=== PATIENT | female | born 1930 | race Caucasian/White ===

== ENCOUNTER 2020-04-21 14:48 | Inpatient (IN) ==
[2020-04-21] MEDS ORDERED: DIPHTH,PERTUSS(ACELL),TET VAC 0.5 ML VIAL IM ONE (15:11)
[2020-04-21] MEDS ORDERED: NORMAL SALINE 1,000 ML IV ONE (16:23)
[2020-04-21 16:29] LABS: Urine Bilirubin Negative (NEGATIVE); Urine Blood Negative /ul (NEGATIVE); Urine Ketone Negative (NEGATIVE); Urine Nitrite Negative (NEGATIVE); Urine Protein Negative (NEGATIVE); Urine Specific Gravity <=1.005 SP.GR. (1.005-1.010); Urine Urobilinogen Normal (NORMAL); Urine pH 5.5 pH (5.0-7.0)
--- NOTE | 2020-04-21 16:40 | ERNOTE ---
Lower Extremity HPI - Narrative Date of Service: 04/21/20 - General Lower Extremities Pain: hip: right Time Seen by Provider: 04/21/20 14:56 Source: patient Exam Limitations: no limitations - Immun/Allergies/Home Medications Immunizations: IMMUNIZATION HX Immunizations Up to Date Yes History of Influenza Vaccine No Allergies/Adverse Reactions: Allergies Allergy/AdvReac Type Severity Reaction Status Date / Time Influenza Virus Vaccines Allergy Verified 04/21/20 14:59 nitrofurantoin Allergy Verified 04/21/20 14:59 [From Macrobid] Penicillins Allergy Verified 04/21/20 14:59 Sulfa (Sulfonamide Allergy Verified 04/21/20 14:59 Antibiotics) Home Medications: HOME MEDICATIONS Balsalazide Disodium [Colazal] 1,500 mg PO BID 04/21/20 [Last Taken Unknown] Meclizine HCl [Travel Sickness] 25 mg PO DAILY PRN 04/21/20 [Last Taken Unknown] glipiZIDE [Glipizide] 5 mg PO BIDAC 04/21/20 [Last Taken Unknown] metFORMIN HCL [Metformin HCl ER] 500 mg PO BID 04/21/20 [Last Taken Unknown] - History of Present Illness Narrative: Patient presents to the ED in transfer from outside facility for right hip fracute. [place] [facility] had contacted Ortho here and patient was accepted in transfer. She states her pain is much improved after Morphine. Right hip. I have reviewed the labs and CT and x-ray from outside ED. She states her right knee hurts a little and she has abrasion there. dT updated. No CP or SOB. No abdominal pain. Occurred: this afternoon Location of Incident: home Method of Injury: Reports: fell Modifying Factors - (Improves): Reports: rest Modifying Factors - (Worsens): Reports: movement Associated Symptoms: Reports: unable to bear weight Subsequent Symptoms: Denies: motor loss Prior Treament: Reports: recently seen Review of Systems - Review of Systems Constitutional: Absent: fever Respiratory: Absent: shortness of breath Cardiology: Absent: chest pain Gastrointestinal/Abdominal: Absent: abdominal pain Genitourinary: Absent: dysuria Musculoskeletal: Present: See HPI Skin: Present: See HPI Neurological: Absent: weakness All Other Systems: All systems neg except as marked Medical History (Last Reviewed 04/21/20 @ 16:36 by James Singleton MD) History of anxiety Hx of Crohn's disease Hx of diabetes mellitus Hx of hyperlipidemia Surgical History: Surgical History (Last Reviewed 04/21/20 @ 16:36 by James Singleton MD) Hx of appendectomy Hx of cholecystectomy Hx of colonoscopy Hx of hysterectomy Family History: Family History (Last Reviewed 04/21/20 @ 16:36 by James Singleton MD) Other No pertinent family history Social History: (Last Reviewed 04/21/20 @ 16:36 by James Singleton MD) Tobacco: Smoking Status: Never smoker Alcohol: alcohol intake: never Substance Use: substance use type: does not use Personal Safety: do you feel safe at home: Yes victim of physical abuse: No victim of emotional abuse: No victim of sexual abuse: No would you like helpful sources: No Physical Exam - Physical Exam General Appearance: Present: alert, no apparent distress Head Exam: Present: normal inspection Eye Exam: Normal inspection: bilateral, PERRL: bilateral Ears, Nose, Throat: Present: normal ENT inspection Neck: Present: normal inspection, other - right paraspinal muscular tenderness. No midline tenderness. Respiratory: Present: no respiratory distress, normal breath sounds Cardiovascular/Chest: Present: regular rate, rhythm, normal peripheral pulses Gastrointestinal/Abdominal: Present: normal bowel sounds, nontender, soft Back Exam: Present: no vertebral tenderness Extremity Exam: Present: other - clinical right hip fracture Neurological Exam: Present: other - pain limits exam, no acute unuilateral motor deficits Skin Exam: Present: normal color, warm/dry, other - abrasion right knee Progress - Results and Orders Patient's Lab Results:: I have reviewed the patient's lab results. Results and Orders: UA pending. I reviewed labs from [facility]. COVID here. - Vital Signs Patient's Vital Signs:: I have reviewed the patient's vital signs. Vital Signs: Vital Signs 04/21/20 14:56 04/21/20 15:17 04/21/20 15:38 Temperature 37.2 C Pulse Rate 72 72 Respiratory Rate 14 14 Blood Pressure 138/65 139/66 O2 Sat by Pulse Oximetry 98 97 04/21/20 15:57 Temperature 36.8 C Pulse Rate 68 Respiratory Rate 16 Blood Pressure 122/68 O2 Sat by Pulse Oximetry 96 - EKG EKG #1 EKG: NSR EKG read: Interp. by me EKG Comments: NSR rate 65. Non-specific no STEMI - Progress/Reassessment Chief Complaint: Hip Pain/Injury Progress Note-Subjective: 04/21/20 16:39 IV fluids given., I spoke with Dr Schofield who will admit. Departure Clinical Impression: Hip fracture - Departure Disposition: Still a patient Condition: Fair
[2020-04-21 16:45] LABS: Urine Appearance Clear (CLEAR); Urine Bacteria None Seen; Urine Color Pale Yellow; Urine RBC None Seen /hpf (0-5); Urine WBC None Seen /hpf (0-5)
[2020-04-21 16:46] LABS: Urine Yeast TRACE
[2020-04-21] MEDS ORDERED: MORPHINE SULFATE 2 MG/ML DISP.SYRIN IV PRN (18:27)
[2020-04-21] MEDS: MORPHINE SULFATE 4 MG/ML SYRG IV PRN (18:42)
[2020-04-21] MEDS: INSULIN LISPRO 100 UNITS/ML VIAL SC SCH (21:50)
[2020-04-21] MEDS: BALSALAZIDE DISODIUM 1500 MG PO SCH (21:51)
[2020-04-21] MEDS ORDERED: hydrALAZINE HCL 20 MG/ML VIAL IV PRN (22:23)
--- NOTE | 2020-04-21 22:31 | HP ---
Chief Complaint - Chief Complaint Date of Service: 04/21/20 Time of Service: 22:20 Chief Complaint: right hip pain History of Present Illness: 89-year-old female transferred here from [place] after she was diagnosed with a right femoral neck fracture with mild impaction. Dr. Novoa was consulted and accepted the case. Plan is to take her back tomorrow morning for surgical repair. Patient currently resting comfortable in bed, no concerns at this time. Vital signs and lab work are stable. She has a history of [id number] diabetes and hypertension. She endorses right hip pain with movement but is comfortable at rest. Lab work reviewed from outside facility which is stable, hemoglobin 13.5. Kidney functions appropriate. Medical History (Last Reviewed 04/21/20 @ 16:36 by James Singleton MD) History of anxiety Hx of Crohn's disease Hx of diabetes mellitus Hx of hyperlipidemia Surgical History: Surgical History (Last Reviewed 04/21/20 @ 16:36 by James Singleton MD) Hx of appendectomy Hx of cholecystectomy Hx of colonoscopy Hx of hysterectomy Family History: Family History (Last Reviewed 04/21/20 @ 16:36 by James Singleton MD) Other No pertinent family history Social History: (Last Reviewed 04/21/20 @ 16:36 by James Singleton MD) Tobacco: Smoking Status: Never smoker Alcohol: alcohol intake: never Substance Use: substance use type: does not use Personal Safety: do you feel safe at home: Yes victim of physical abuse: No victim of emotional abuse: No victim of sexual abuse: No would you like helpful sources: No Review Of Systems (GEN) - Review of Systems Generalized/Overall Review: Absent: Weakness, Chills, Fever EENTM: Present: No Symptoms Reported Respiratory: Present: No Symptoms Reported Cardiac: Present: No Symptoms Reported Abdominal: Present: No Symptoms Reported Genitourinary: Present: No Symptoms Reported Musculoskeletal: Present: Joint Pain - right hip Neurological: Present: No Symptoms Reported Skin: Present: No Symptoms Reported Immunizations: IMMUNIZATION HX Immunizations Up to Date Yes History of Influenza Vaccine No Allergies/Adverse Reactions: Allergies Allergy/AdvReac Type Severity Reaction Status Date / Time Influenza Virus Vaccines Allergy Verified 04/21/20 14:59 nitrofurantoin Allergy Verified 04/21/20 14:59 [From Macrobid] Penicillins Allergy Verified 04/21/20 14:59 Sulfa (Sulfonamide Allergy Verified 04/21/20 14:59 Antibiotics) Home Medications: HOME MEDICATIONS Balsalazide Disodium [Colazal] 1,500 mg PO BID 04/21/20 [Last Taken Unknown] Meclizine HCl [Travel Sickness] 25 mg PO DAILY PRN 04/21/20 [Last Taken Unknown] glipiZIDE [Glipizide] 5 mg PO BIDAC 04/21/20 [Last Taken Unknown] metFORMIN HCL [Metformin HCl ER] 500 mg PO BID 04/21/20 [Last Taken Unknown] Exam - Exam Vital Signs: Vital Signs - Last Taken Temp 37.2 C 04/21/20 19:05 Pulse 71 04/21/20 19:05 Resp 18 04/21/20 19:05 BP 163/77 H 04/21/20 19:05 Pulse Ox 97 04/21/20 19:05 Constitutional: Present: Alert, Oriented x3, Cooperative, Elderly ENT Exam: Present: hard of hearing Eye Exam: bilateral eye: normal inspection, EOMI Neck: Present: tender midline - mildy tender (CT neg) Respiratory: Present: lungs clear, normal breath sounds Cardiovascular/Chest: Present: regular rate, rhythm, no murmur Peripheral Pulses: dorsalis-pedis (R): 2+, dorsalis-pedis (L): 2+ Abdomen: Present: soft, nontender, nondistended Extremity: Present: normal capillary refill. Absent: normal range of motion - Motion limited due to pain, right foot internally rotated, non-tender - Right hip tenderness with active and passive range of motion Skin Exam: Present: normal color, warm/dry Eye contact: Present: cooperative, good eye contact Diagnostic Studies: Laboratory Results Urine Color Pale yellow 04/21/20 16:15 Urine Appearance Clear (CLEAR) 04/21/20 16:15 Urine pH 5.5 pH (5.0-7.0) 04/21/20 16:15 Ur Specific [place] <=1.005 SP.GR. (1.005-1.010) 04/21/20 16:15 Urine Protein Negative mg/dL (NEGATIVE) 04/21/20 16:15 Urine Glucose (UA) Negative mg/dL (NEGATIVE) 04/21/20 16:15 Urine Ketones Negative mg/dL (NEGATIVE) 04/21/20 16:15 Urine Blood Negative /ul (NEGATIVE) 04/21/20 16:15 Urine Nitrate Negative (NEGATIVE) 04/21/20 16:15 Urine Bilirubin Negative mg/dl (NEGATIVE) 04/21/20 16:15 Urine Urobilinogen Normal EU/dl (NORMAL) 04/21/20 16:15 Ur Leukocyte Esterase Negative /ul (NEGATIVE) 04/21/20 16:15 Urine RBC None seen /hpf (0-5) 04/21/20 16:15 Urine WBC None seen /hpf (0-5) 04/21/20 16:15 Ur Epithelial Cells None seen /hpf (0-5) 04/21/20 16:15 Urine Bacteria None seen (NONE) 04/21/20 16:15 Urine Yeast Trace (NONE) 04/21/20 16:15 Urine Culture Comments Culture to follow 04/21/20 16:15 SARS-CoV-2 (PCR) Not detected (NotDetected) 04/21/20 15:05 Assessment/Plan - Narrative Narrative: Patient admitted under inpatient [facility] floor with plan to have hip repair tomorrow with Dr. Novoa. Pain well controlled with morphine as needed, no DVT prophylaxis at this time prior to surgery. Patient made n.p.o. at midnight. LR ordered to be started at that time. Hydralazine ordered for systolic pressures greater than 170. Blood sugars to be monitored before meals at bedtime. Moderate insulin sliding scale ordered. Patient cleared for surgery. Nurse to call questions with concerns. - Assessment/Plan (1) Diabetes Problem: Acute (2) Hypertension Problem: Acute (3) Hip fracture Problem: Acute
[2020-04-22] MEDS ORDERED: RINGER'S SOLUTION,LACTATED 1,000 ML IV ONE
[2020-04-22] MEDS: MORPHINE SULFATE 4 MG/ML SYRG IV PRN (01:53)
--- NOTE | 2020-04-22 07:57 | CONS ---
[facility] - General Date of Service: 04/22/20 Narrative: Normal reports a ground-level fall yesterday with severe right hip pain. She was unable to ambulate. She was brought into [facility] emergency department evaluated found to have a subcapital hip fracture minimally displaced. She was transferred to our hospital for care. She is admitted under Dr. Benson service. She reports mild discomfort in her right knee as well other than that she has no other complaints. Source: patient - History of Present Illness Timing/Duration: 24 hours Allergies/Adverse Reactions: Allergies Influenza Virus Vaccines Allergy (Verified 04/21/20 14:59) nitrofurantoin [From Macrobid] Allergy (Verified 04/21/20 14:59) Penicillins Allergy (Verified 04/21/20 14:59) Sulfa (Sulfonamide Antibiotics) Allergy (Verified 04/21/20 14:59) Home Medications: Home Medications Medication Instructions Recorded Last Taken Balsalazide Disodium [Colazal] 1,500 mg PO BID 04/21/20 Unknown Meclizine HCl [Travel Sickness] 25 mg PO DAILY PRN 04/21/20 Unknown glipiZIDE [Glipizide] 5 mg PO BIDAC 04/21/20 Unknown metFORMIN HCL [Metformin HCl ER] 500 mg PO BID 04/21/20 Unknown Medications - Medications Current Medications: Current Medications Lactated Ringer's (Lactated Ringers) 1,000 mls @ 125 mls/hr IV .Q8H ONE Stop: 04/22/20 07:59 Last Admin: 04/22/20 00:28 Dose: 125 mls/hr Documented by: Insulin Human Lispro (Humalog) [facility]; Protocol Stop: 05/21/20 21:01 Last Admin: 04/21/20 21:50 Dose: Not Given Documented by: Balsalazide Disodium (1,500 Mg) 1,500 mg PO BID [facility] Stop: 05/21/20 21:01 Last Admin: 04/21/20 21:51 Dose: Not Given Documented by: Physical Examination - Exam Vital Signs: Vital Signs - Last Taken Temp 36.5 C 04/22/20 06:43 Pulse 74 04/22/20 06:43 Resp 16 04/22/20 06:43 BP 149/62 04/22/20 06:43 Pulse Ox 91 L 11/10/20 06:43 O2 Oxygen Delivery Method Room Air - Results and Findings: Lab/Microbiology results last 24 hrs: Culture 04/21/20 16:15 Urine Culture - Preliminary Urine,Catheterized No Growth - Assessments/Findings (1) Hip fracture Diagnosis(s): O: Patient is resting comfortably in bed. She is alert and oriented. She responds to questions appropriately. She reports local discomfort in the right hip with palpation. [place] does produce right hip pain as well. She has an abrasion on her knee does report some discomfort with knee range of motion. She is able to plantarflex and dorsiflex right ankle. Sensation intact. Pulses intact. X-rays reviewed show mildly impacted and valgus alignment subcapital hip fracture. Labs and vitals reviewed. Assessment is right subcapital hip fracture Plan is closed reduction percutaneous fixation. Surgical risk discussed with patient. Consents will be obtained. She will of Ancef IV preop with test dose. Problem: Acute
[2020-04-22] MEDS ORDERED: ceFAZolin SODIUM 1 GM VIAL ONE (08:22)
--- NOTE | 2020-04-22 08:24 | ANES ---
Anesthesia Pre Procedure Eval Vitals/Labs: Last Vital Signs Temp 36.5 C 04/22/20 06:43 Pulse 74 04/22/20 06:43 Resp 16 04/22/20 06:43 BP 149/62 04/22/20 06:43 Pulse Ox 91 L 04/22/20 06:43 HOME MEDICATIONS Balsalazide Disodium [Colazal] 1,500 mg PO BID 04/21/20 [Last Taken Unknown] Meclizine HCl [Travel Sickness] 25 mg PO DAILY PRN 04/21/20 [Last Taken Unknown] glipiZIDE [Glipizide] 5 mg PO BIDAC 04/21/20 [Last Taken Unknown] metFORMIN HCL [Metformin HCl ER] 500 mg PO BID 04/21/20 [Last Taken Unknown] Allergies/Adverse Reactions: Allergies Allergy/AdvReac Type Severity Reaction Status Date / Time Influenza Virus Vaccines Allergy Verified 04/21/20 14:59 nitrofurantoin Allergy Verified 04/21/20 14:59 [From Macrobid] Penicillins Allergy Verified 04/21/20 14:59 Sulfa (Sulfonamide Allergy Verified 04/21/20 14:59 Antibiotics) - Planned Procedure Planned Procedure: hip fracture Medication List Reviewed:: Yes Allergies Verified: Yes Medical History (Last Reviewed 04/22/20 @ 08:11 by Jace Quinn CRNA) History of anxiety Hx of Crohn's disease Hx of diabetes mellitus Hx of hyperlipidemia Surgical History (Last Reviewed 04/22/20 @ 08:11 by Jace Quinn CRNA) Hx of appendectomy Hx of cholecystectomy Hx of colonoscopy Hx of hysterectomy Family History (Last Reviewed 04/22/20 @ 08:11 by Jace Quinn CRNA) Other No pertinent family history - Family Anesthesia History Family History:: no untoward family reactions to anesthesia, no familial bleeding tendencies, no family history of clotting disorders, no family history of premature - Airway/Neck/Teeth Teeth Condition: none Denture Type: Full upper, Full lower Neck Exam: full range of motion Mallampatti Score: 2 Thyromental (T-M) distance: > 6 cm Mandibulo Hyoid distance: > 3 cm - Respiratory Respiratory Physical: lungs clear Smoking Status: Never smoker Sleep Apnea currently treated: No Sleep Apnea by current assessment: No - Cardiovascular Cardiac History: hypertension - borderline Tolerate Activity: Poor Heart Sounds: S1 & S2, Regular - Gastrointestinal NPO since: 2399 - Anesthesia Assessment and Plan ASA Class: PS, III Anesthesia Type Plan: Spinal
[2020-04-22] MEDS ORDERED: MIDAZOLAM HCL/PF 5 MG/ML VIAL ONE (08:26)
[2020-04-22] MEDS ORDERED: BUPIVACAINE HCL/PF 10 ML VIAL ONE (08:26)
[2020-04-22] MEDS ORDERED: PROPOFOL VIAL IV ONE (08:27)
[2020-04-22] MEDS: RINGER'S SOLUTION,LACTATED 1,000 ML IV PRN ×4 (08:31→22:03)
[2020-04-22] MEDS: INSULIN LISPRO 100 UNITS/ML VIAL SC SCH ×4 (08:46→21:06)
[2020-04-22] MEDS ORDERED: ONDANSETRON HCL/PF 2 MG/ML VIAL IV PRN (10:02)
[2020-04-22] MEDS ORDERED: MAG HYDROX/ALUMINUM HYD/SIMETH 30 ML UDC PO PRN (10:02)
[2020-04-22] MEDS ORDERED: ACETAMINOPHEN 500 MG TABLET PO PRN (10:02)
[2020-04-22] MEDS ORDERED: MAGNESIUM HYDROXIDE 30 ML UDC PO PRN (10:02)
--- NOTE | 2020-04-22 10:02 | OR ---
Operative Report - Dictated Report Narrative: Date: 04/22/2020 Surgeon: Sam Novoa M.D. Cell Biology Scientist: None Preoperative diagnosis: Closed right nondisplaced femoral neck fracture Postoperative diagnosis:Closed right nondisplaced femoral neck fracture Operations and procedures: 1. Percutaneous fixation right nondisplaced femoral neck fracture 2. Intraoperative interpretation of radiographs Anesthesia: Spinal Specimens: None Estimated blood loss: Minimal Retained implants: [employer] 7.3 millimeter 16 millimeter threads cannulated screws 80, 85, 85 millimeter lengths with 2 washers Complications: None Indications for procedure: Mrs. Esparza is an 89-year-old female who injured the right hip after ground-level fall at home. She was admitted to the hospital after being evaluated in the emergency department. Once the medical provider felt that they were stable for surgical treatment, the risks and benefits alternatives were discussed. The risks of , blood clots, bleeding, infection, nerve/tendon/blood vessel injury, malunion, nonunion, failure of implants, painful implants, arthrosis, and need for additional procedures were discussed. The extremity was marked and consent was obtained on the floor. Procedure: After marking the operative extremity on the floor, the patient was taken to the operating room. A timeout was performed. IV antibiotics consisting of Ancef were administered. A spinal anesthetic was induced by anesthesia, and the patient was then placed onto a fracture table with a well-padded perineal post. The nonoperative leg was placed in a well-padded traction boot in slight extension without any traction with an SCD on the leg. The operative leg was pl aced in a well-padded traction boot. No traction or manipulation was performed. Preliminary images were attained utilizing C-arm in both the AP and lateral views. This confirmed that we had obtained adequate visualization of the fracture as well as reduction. Next the hip was then prepped and draped in a standard sterile fashion. Next three guidewires were placed percutaneously in an inverted triangle fashion. The inferior screws placed centered on the lateral view and along the inferior neck cortex on the AP view. The 2 superior screws were placed along the anterior and posterior cortex on the lateral view and along the inferior portion of the superior cortex on the AP in order to obtain as long of screws as possible. This was done with a starting point above the level of the lesser trochanter. C-arm was utilized in order to confirm the placement and to ensure that the tips of the guidewires were not penetrating the joint. The screws were then measured, the outer cortex was drilled, and the 3 screws were placed securing them to the bone on the lateral aspect providing fixation across the fracture. C-arm was again utilized to ensure that the screws were not into the joint and that they stabilized the fracture. The wounds were then thoroughly irrigated. Final images were obtained. The hip was placed through range of motion and showed no crepitance. The subcutaneous tissue was closed with 3-0 Vicryl, and the skin was closed with ama. Sterile dressings of Xeroform, 4 x 4, and Tegaderm were applied. All sponge, sharp, and instrument counts were correct prior to closing the wounds. The patient was then awoken and transferred to the postanesthesia care unit in stable condition.
--- NOTE | 2020-04-22 10:18 | ANES ---
Post Anesthesia Discharge - Transfer of Care Transfer of Care handoff given to nurse: Yes - Discharge from PACU Discharge from PACU when meets criteria: Yes - Awake and comfortable.
[2020-04-22] MEDS: BALSALAZIDE DISODIUM 1500 MG PO SCH ×2 (10:23→21:05)
--- NOTE | 2020-04-22 10:41 | ANES ---
Post Anesthesia Assessment - Vital Signs Vitals: Last Vital Signs Temp 35.9 C L 04/22/20 10:37 Pulse 73 04/22/20 10:37 Resp 16 04/22/20 10:37 BP 137/66 04/22/20 10:37 Pulse Ox 96 04/22/20 10:37 Airway Patency: Normal - Mental Status Level Of Consciousness: Alert, Appropriate - Pain Level Pain Score: 0 - N/V Assessment Nausea/Vomiting Presence: None Dehydration:: No
[2020-04-22] MEDS: ceFAZolin SODIUM 1 GM in DEXTROSE 5 % IN WATER 100 ML IV SCH ×4 (12:07→17:22)
--- NOTE | 2020-04-22 13:41 | PN ---
Subjective - Date and Time Seen Date: 04/22/20 Time: 09:00 Subjective Narrative: Patient resting comfortably in her bed, denies any pain at this time. Vital signs been stable and she been afebrile. No acute events overnight. Patient's only issue at this time is that she is cold currently has bear huggers on, is starting to feel better. Objective - Review of Systems Generalized/Overall Review: Reports: Chills. Denies: Weakness, Fever EENTM: Reports: No Symptoms Reported Cardiac: Reports: No Symptoms Reported Abdominal: Reports: No Symptoms Reported Genitourinary Symptoms: Reports: No Symptoms Reported Musculoskeletal Complaints: Denies: Joint Pain - Comfortable while resting Neurological: Reports: No Symptoms Reported Skin: Reports: No Symptoms Reported Endocrine: Reports: No Symptoms Reported - Vitals Vitals: Last Vital Signs Temp 35.9 C L 04/22/20 10:37 Pulse 73 04/22/20 12:22 Resp 16 04/22/20 12:22 BP 141/69 04/22/20 12:22 Pulse Ox 93 04/22/20 12:22 - Exam Constitutional: Present: Alert, Oriented x3, Cooperative, Elderly ENT Exam: Present: hard of hearing Respiratory: Present: lungs clear, normal breath sounds Cardiovascular/Chest: Present: regular rate, rhythm, no murmur Abdomen: Present: soft, nontender Skin Exam: Present: normal color, warm/dry Appearance: Present: appropriate appearance, appropriate insight, neat Eye contact: Present: cooperative, good eye contact Thoughts: Present: normal thought pattern, normal mood /affect Cauti Physician Documentation - Urinary Catheter Management Urethral (Wells) Date of Insertion: 04/21/20 Time of Insertion: 13:10 Assessment/Plan Plan Narrative: Patient is here for right hip fracture who underwent repair with Dr. Raymond today. She currently is feeling well, has no concerns at this time. Her blood pressure is well controlled. Her sugars been well controlled. She will be started on anticoagulation today. Consistent carb diet restarted. She will be transition to oral pain medicine. Repeat hemogram and BMP for tomorrow ordered. PT and OT ordered as well. - Problems/Diagnosis (1) Diabetes Problem: Acute Qualifiers: Diabetes mellitus type: type 2 Diabetes mellitus intermediate manager insulin use: without penitentiary use (2) Hypertension Problem: Acute Qualifiers: Hypertension type: essential hypertension Qualified Code(s): I10 - Essential (primary) hypertension (3) Hip fracture Problem: Acute
[2020-04-22] MEDS: HYDROcodone/ACETAMINOPHEN 1 EACH TABLET PO PRN ×2 (14:40→19:34)
[2020-04-22] MEDS ORDERED: SENNOSIDES/DOCUSATE SODIUM 1 TAB TABLET PO SCH (21:00)
[2020-04-23] MEDS: ceFAZolin SODIUM 1 GM in DEXTROSE 5 % IN WATER 100 ML IV SCH ×2 (00:02)
[2020-04-23] MEDS: HYDROcodone/ACETAMINOPHEN 1 EACH TABLET PO PRN ×3 (02:09→16:25)
[2020-04-23] MEDS ORDERED: ceFAZolin SODIUM 1 GM VIAL IV PRN (06:00)
[2020-04-23] MEDS: INSULIN LISPRO 100 UNITS/ML VIAL SC SCH ×2 (07:43→12:18)
--- NOTE | 2020-04-23 08:01 | PN ---
Subjective - Date and Time Seen Date: 04/23/20 Time: 07:59 Subjective Narrative: Subjective: Reports mild pain. Was able to walk to the bathroom with therapy. Pain is well-controlled. Voiding without any complications. Tolerating by mouth intake. Denies any nausea or vomiting. Denies calf pain. Slept well. Physical exam: Alert and oriented to person, place and time Right lower extremity: Palpable dorsalis pedis pulse. Sensation grossly intact to light touch. Dressings clean and dry. Able to flex and extend ankle and toes. No excessive drainage. Calf and thigh are soft and nontender. Assessment: Postop day 1 status post percutaneous fixation of right femoral neck fracture. Plan: Continue with physical and occupational therapy weightbearing as tolerated. Continue with anticoagulation -she will need 6 weeks of DVT prophylaxis. 24 hours postoperative prophylactic antibiotics. Pain control with goal to rely on oral medications. Continue bowel regimen. Will need 6 weeks with walker or assitive device to protect joint while ambulating during the recovery process. Discharge planning. From an orthopedic standpoint she can be discharged when stable. Keep the wound clean and dry and covered with gauze. Follow-up in 2 weeks. Continue compression stocking on the surgical leg. Objective - Vitals Vitals: Last Vital Signs Temp 37.2 C 04/23/20 06:00 Pulse 74 04/23/20 06:00 Resp 18 04/23/20 06:00 BP 137/48 04/23/20 06:00 Pulse Ox 92 L 04/23/20 06:00 Cauti Physician Documentation - Urinary Catheter Management Urethral (Wells) Date of Insertion: 04/21/20 Time of Insertion: 13:10 Date of Removal: 04/23/20 Time of Removal: 05:00 Assessment/Plan - Problems/Diagnosis (1) Hip fracture Problem: Acute Qualifiers: Encounter type: subsequent encounter Fracture type: closed Laterality: right Fracture healing: with routine healing Qualified Code(s): S72.001D - Fracture of unspecified part of neck of right femur, subsequent encounter for closed fracture with routine healing
[2020-04-23] MEDS ORDERED: RIVAROXABAN 20 MG TABLET PO SCH (09:00)
[2020-04-23 09:09] LABS: Hematocrit 38.7 % (37.0-47.0); Hemoglobin 12.5 gm/dL (12.5-16.0); Mean Corpuscular Hemoglobin 28.1 pg (27-31); Mean Corpuscular Hgb Conc 32.3 g/dl (32-36); Mean Platelet Volume 12.3 fl (8-12.5); Platelet Count 154 K/mm3 (150-450); Red Blood Count 4.45 M/mm3 (4.2-5.4); Red Cell Distribution Width 12.9 % (11.5-14.0); White Blood Count 9.7 K/mm3 (4.0-10.5)
[2020-04-23] MEDS: BALSALAZIDE DISODIUM 1500 MG PO SCH (09:38)
[2020-04-23 09:39] LABS: Anion Gap 14.4 mmol/L (6.8-13.8); BUN/Creatinine Ratio 11.5 (9.0-21.6); Calcium * 9.1 mg/dL (7.9-10.9); Carbon Dioxide 25.6 mmol/L (24-32.6); Estimated Creat Clear 32.4
[2020-04-23] MEDS ORDERED: glipiZIDE 5 MG TABLET PO SCH (10:00)
--- NOTE | 2020-04-23 16:17 | DS ---
(1) Hip fracture Problem: Acute Qualifiers: Encounter type: subsequent encounter Fracture type: closed Laterality: right Fracture healing: with routine healing Qualified Code(s): S72.001D - Fracture of unspecified part of neck of right femur, subsequent encounter for closed fracture with routine healing (2) Diabetes Problem: Acute Qualifiers: Diabetes mellitus type: type 2 Diabetes mellitus halfway insulin use: without halfway use (3) Hypertension Problem: Acute Qualifiers: Hypertension type: essential hypertension Qualified Code(s): I10 - Essential (primary) hypertension Date of Discharge:: 04/23/20 Hospital Course: 89-year-old female with history of hypertension, [id number] diabetes, Crohn's disease who was admitted to the hospital following a ground-level fall that resulted in a right femoral neck fracture. She was taken back to the OR yesterday with Dr. Novoa for a percutaneous fixation right nondisplaced femoral neck fracture which she tolerated well. Repeat lab work following surgery showed her hemoglobin to be stable, her kidney function was also stable. She has been pleasant to care for. No concerns with her vital signs either. No changes to her chronic medications. Her pain is well controlled with oral medicines. She will be sent home on Xarelto for 6 weeks, hydrocodone will be sent in for pain control during this time. While here her blood sugars and blood pressures have been well controlled. She is in need of home health services. Carrie Esparza is confined to her home due to recently repaired right intertrochanteric femur neck fracture. She is in need of physical therapy as she will need help with developing appropriate ambulation mechanisms to protect that joint, she is in need of it for muscle strengthening and range of motion, and she is in need of it due to deconditioning and weakness of the right lower extremity. The need for home health care skilled services is directly related to the time spent [id number] with this patient. She will follow-up with her PCP in 1 to 2 weeks. She will follow-up with orthopedics in 2 weeks. Procedures Performed: see notes below - Percutaneous fixation right nondisplaced femoral neck fracture Results and Findings: Lab Pending Results 04/21/20 15:05: SARS-CoV-2 (PCR) Not detected 04/21/20 16:15: Urine Color Pale yellow, Urine Appearance Clear, Urine pH 5.5, Ur Specific [place] <=1.005, Urine Protein Negative, Urine Glucose (UA) N egative, Urine Ketones Negative, Urine Blood Negative, Urine Nitrate Negative, Urine Bilirubin Negative, Urine Urobilinogen Normal, Ur Leukocyte Esterase Negative, Urine RBC None seen, Urine WBC None seen, Ur Epithelial Cells None seen, Urine Bacteria None seen, Urine Yeast Trace, Urine Culture Comments Culture to follow 04/23/20 09:04: WBC 9.7, RBC 4.45, Hgb 12.5, Hct 38.7, MCV 87.0, MCH 28.1, MCHC 32.3, RDW 12.9, Plt Count 154, MPV 12.3 04/23/20 09:04: Sodium 137, Plasma Sodium 140, Potassium 4.0, Chloride 101, Carbon Dioxide 25.6, Anion Gap 14.4 H, BUN 11, Creatinine 0.96, Est GFR (Non-Af Amer) 58 L, BUN/Creatinine Ratio 11.5, Random Glucose 265 H, Calcium 9.1 Discharge Location: Home Disposition: Home Health Service Home Health Agency: [facility] Condition: Fair Face to Face Encounter completed per [facility] Guidelines: Yes Discharge Activity: Partial-Weight bearing - With anterior hip precautions Discharge Diet: Consistent carbs - Clinically physical therapy at this Additional Patient Instructions (free text): [facility] new to see her at home with Physical Therapy and nursing. Please call and fax discharge information to them. Please fax chart information to PCP Leo Riggs to [phone]. Follow up [facility] Orthopedic office appointment on TuesdayMay 07 at2:30pm. Ortho instructions: Continue with anticoagulation she will need 6 weeks of DVT prophylaxis (Xarelto) Will need 6 weeks with walker or assitive device to protect joint while ambulating during the recovery process. Keep the wound clean and dry and covered with gauze. Continue compression stocking on the surgical leg. Prescriptions (Any new or edited meds): HYDROcodone/ACETAMINOPHEN [[place] 5-325] 1 ea PO Q3H PRN #60 tab PRN Reason: Moderate Pain (Pain Scale 4-6) Transmission Status: Received by [place] Rivaroxaban [Xarelto] 10 mg PO DAILY #42 tab Transmission Status: Pending to [place] Complete Home Medications List: Complete Home Medication List: Balsalazide Disodium [Colazal] 1,500 mg PO BID 04/21/20 Meclizine HCl [Travel Sickness] 25 mg PO DAILY PRN 04/21/20 glipiZIDE [Glipizide] 5 mg PO BIDAC 04/21/20 metFORMIN HCL [Metformin HCl ER] 500 mg PO BID 04/21/20 HYDROcodone/ACETAMINOPHEN [[place] 5-325] 1 ea PO Q3H PRN #60 tab 04/23/20 Rivaroxaban [Xarelto] 10 mg PO DAILY #42 tab 04/23/20 Forms: Patient Portal Registration
[2020-04-23 17:08] VITALS: BP 166/66
== END 2020-04-23 17:36 | disposition home health service (06) | DRG 481 ==
LOC: ER 14:48 → MS 16:21
PROVIDERS: ADMIT Family Medicine; ATTEND Family Medicine
DX: S79.011A Salter-Harris Type I physeal fracture of upper end of right femur, initial encounter for closed fracture; E11.9 Type 2 diabetes mellitus without complications; Z23 Encounter for immunization; K50.90 Crohn's disease, unspecified, without complications; I10 Essential (primary) hypertension; W19.XXXA Unspecified fall, initial encounter